=== PATIENT | male | born 1990 | race Caucasian/White ===

== ENCOUNTER 2018-11-25 18:36 | Emergency (ER) | payer SELFPAY ==
--- NOTE | 2018-11-25 20:30 | RAD ---
2 VIEW CHEST: Date: 11/25/18 No prior comparison. INDICATION: Cough. FINDINGS: There is focal consolidation of the lateral right upper to mid lung zone. There is patchy left perihi lar opacity. Subtle patchy density also seen at the right lung base. Cardiac silhouette is of normal size. There is no effusion. IMPRESSION: Findings which favor an atypical, bilateral pneumonia. Recommend radiographic follow-up upon completi on of treatment regimen to confirm resolution. CODE T. POS: ANTONIA
[2018-11-25] MEDS ORDERED: Azithromycin 250 MG TAB ONE ×2 (22:25→22:43)
[2018-11-25] MEDS ORDERED: Lidocaine 1% PF 5 ML VIAL ONE (22:36)
[2018-11-25] MEDS ORDERED: cefTRIAXone\\ROCEPHIN 2 GM VIAL ONE (22:36)
== END 2018-11-25 22:57 | disposition home or self-care (01) ==
LOC: ERS 18:36
DX: J18.9 Pneumonia, unspecified organism (principal); F17.290 Nicotine dependence, other tobacco product, uncomplicated
CPT/HCPCS: 71046; 87804; 96372; J0696; J2001